=== PATIENT | male | born 1990 | race Hispanic/Latino ===

== ENCOUNTER 2019-02-18 16:04 | Emergency (ER) | payer OTHER, SELFPAY ==
[2019-02-18] MEDS ORDERED: TETANUS & DIPHTHERIA TOX,ADULT 0.5 ML VIAL ONE (16:21)
[2019-02-18] MEDS ORDERED: LIDOCAINE 1% MPF 5 ML VIAL ONE (16:21)
--- NOTE | 2019-02-18 17:02 | EDPHYS ---
Physician Documentation [facility] Name: Garfield Gibbs Age: 28 yrs Sex: Male : 1990 Arrival Date: 02/18/2019 Time: 16:07 Bed 14 Private MD: ED Physician Ace Damon HPI: 02/18 16:18 This 28 yrs old Male presents to ER via Ambulatory with complaints of kb Laceration To Scalp/Face. 16:18 The patient has a laceration related to: branch of palm tree fell and hit pt in the kb face causing laceration to upper lip and abrasions to forehead. No LOC occurred at a relative's home, outdoors, and there are no complicating factors. The injury was accidental. The laceration(s) is(are) located on the upper vermilion border and upper lip. Onset: The symptoms/episode began/occurred just prior to arrival. Associated signs and symptoms: The patient has no apparent associated signs or symptoms. The patient has not experienced similar symptoms in the past. The patient has not recently seen a physician. Historical: - Allergies: 16:09 No Known Allergies; la1 - PMHx: 16:09 None; la1 - Immunization history:: Adult Immunizations up to date. - Social history:: Smoking status: Patient/guardian denies using tobacco. - Ebola Screening: : No symptoms or risks identified at this time. ROS: 16:18 Constitutional: Negative for fever, chills, and weight loss, Eyes: Negative for injury, kb pain, redness, and discharge, ENT: Negative for injury, pain, and discharge, Neck: Negative for injury, pain, and swelling, Cardiovascular: Negative for chest pain, palpitations, and edema, Respiratory: Negative for shortness of breath, cough, wheezing, and pleuritic chest pain, Abdomen/GI: Negative for abdominal pain, nausea, vomiting, diarrhea, and constipation, Back: Negative for injury and pain, MS/Extremity: Negative for injury and deformity, Neuro: Negative for headache, weakness, numbness, tingling, and seizure. 16:18 Skin: Positive for abrasion(s), laceration(s). Exam: 16:18 Constitutional: This is a well developed, well nourished patient who is awake, alert, kb and in no acute distress. ENT: Nares patent. No nasal discharge, no septal abnormalities noted. Tympanic membranes are normal and external auditory canals are clear. Oropharynx with no redness, swelling, or masses, exudates, or evidence of obstruction, uvula midline. Mucous membranes moist. Neck: Trachea midline, no thyromegaly or masses palpated, and no cervical lymphadenopathy. Supple, full range of motion without nuchal rigidity, or vertebral point tenderness. No Meningismus. Chest/axilla: Normal chest wall appearance and motion. Nontender with no deformity. No lesions are appreciated. Cardiovascular: Regular rate and rhythm with a normal S1 and S2. No gallops, murmurs, or rubs. Normal PMI, no JVD. No pulse deficits. Respiratory: Lungs have equal breath sounds bilaterally, clear to auscultation and percussion. No rales, rhonchi or wheezes noted. No increased work of breathing, no retractions or nasal flaring. Abdomen/GI: Soft, non-tender, with normal bowel sounds. No distension or tympany. No guarding or rebound. No evidence of tenderness throughout. Back: No spinal tenderness. No costovertebral tenderness. Full range of motion. MS/ Extremity: Pulses equal, no cyanosis. Neurovascular intact. Full, normal range of motion. Neuro: Awake and alert, GCS 15, oriented to person, place, time, and situation. Cranial nerves II-XII grossly intact. Motor strength 5/5 in all extremities. Sensory grossly intact. Cerebellar exam normal. Normal gait. 16:18 Head/face: Noted is no obvious of injury or deformity except abrasion(s), that are mild, of the forehead, a laceration(s), that is deep, 2 cm(s), of the upper lip and upper vermilion border. Vital Signs: 16:09 BP 158 / 100; Pulse 104; Resp 16; Temp 98.6; Pulse Ox 100% on R/A; Weight 95.25 kg; la1 17:16 BP 147 / 99; Pulse 97; Resp 16; Temp 98.6; Pulse Ox 98% ; bp Laceration: 17:00 Wound Repair of 2cm ( 0.8in ) subcutaneous laceration to upper lip and upper vermilion kb border. Linear shaped.. Distal neuro/vascular/tendon intact. Anesthesia: Wound infiltrated with 3 mls of 1% lidocaine. Wound prep: Moderate cleansing, Wound irrigation. Skin closed with 5-0 fast absorbing gut using interrupted sutures and sterile technique. Patient tolerated well. MDM: 16:11 Patient medically screened. kb 16:20 Data reviewed: vital signs, nurses notes. Data interpreted: Pulse oximetry: on room air kb is 100 %. Interpretation: normal. Counseling: I had a detailed discussion with the patient and/or guardian regarding: the historical points, exam findings, and any diagnostic results supporting the discharge/admit diagnosis, the need for outpatient follow up, a family practitioner, to return to the emergency department if symptoms worsen or persist or if there are any questions or concerns that arise at home. 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 Exp: bp 09/24/2020. Lot #: [id number]. } Route: IM; Site: right deltoid; 17:17 Follow up: Response: No adverse reaction bp 16:42 Drug: Lidocaine (1 %) 1 vials Volume: 5 ml; Route: Infiltration; bp Disposition: 02/19 05:51 Co-signature as Attending Physician, Ace Damon MD I agree with the assessment and fatoumata plan of care. Disposition: 02/18/19 17:01 Discharged to Home. Impression: Laceration without foreign body of lip, Superficial injury of head. - Condition is Stable. - Discharge Instructions: Mouth Laceration, [id number], Head Injury, Adult, [id number]. - Medication Reconciliation Form, Thank You Letter, Antibiotic Education, Prescription Opioid Use form. - Follow up: Emergency Department; When: As needed; Reason: Worsening of condition. Follow up: Private Physician; When: 2 - 3 days; Reason: Recheck today's complaints, Continuance of care, Re-evaluation by your physician. Signatures: Manuela Kennedy, COMBINATION WORKER-C EDWINA-Ace Patel MD MD cha Attema, Lee RN RN la1 Guerrero Mancini RN RN bp Corrections: (The following items were deleted from the chart) 02/18 17:21 17:01 02/18/2019 17:01 Discharged to Home. Impression: Laceration without foreign body bp of lip; Superficial injury of head. Condition is Stable. Discharge Instructions: Mouth Laceration, [id number], Head Injury, Adult, [id number]. Forms are Medication Reconciliation Form, Thank You Letter, Antibiotic Education, Prescription Opioid Use. Follow up: Emergency Department; When: As needed; Reason: Worsening of condition. Follow up: Private Physician; When: 2 - 3 days; Reason: Recheck today's complaints, Continuance of care, Re-evaluation by your physician. kb
--- NOTE | 2019-02-18 17:02 | ER ---
Nurse's Notes [facility] Name: Garfield Gibbs Age: 28 yrs Sex: Male : 1990 Arrival Date: 02/18/2019 Time: 16:07 Bed 14 Private MD: Diagnosis: Laceration without foreign body of lip;Superficial injury of head Presentation: 02/18 16:08 Presenting complaint: Patient states: a palm tree hit me in the face, laceration to la1 upper lip. Transition of care: patient was not received from another setting of care. Complicating Factors: There are no complicating factors for this patient. Onset of symptoms was February 18, 2019. Risk Assessment: Do you want to hurt yourself or someone else? Patient reports no desire to harm self or others. Initial Sepsis Screen: Does the patient meet any 2 criteria? No. Patient's initial sepsis screen is negative. Does the patient have a suspected source of infection? No. Patient's initial sepsis screen is negative. Care prior to arrival: None. 16:08 Method Of Arrival: Ambulatory la1 16:08 Acuity: JH 4 la1 Triage Assessment: 16:08 General: Appears in no apparent distress. comfortable, Behavior is calm, cooperative, bp appropriate for age. Pain: Complains of pain in face. EENT: No deficits noted. Neuro: No deficits noted. Cardiovascular: No deficits noted. Respiratory: No deficits noted. GI: No signs and/or symptoms were reported involving the gastrointestinal system. : No signs and/or symptoms were reported regarding the genitourinary system. Derm: No deficits noted. Musculoskeletal: No deficits noted. Injury Description: Laceration sustained to face. Historical: - Allergies: 16:09 No Known Allergies; la1 - PMHx: 16:09 None; la1 - Immunization history:: Adult Immunizations up to date. - Social history:: Smoking status: Patient/guardian denies using tobacco. - Ebola Screening: : No symptoms or risks identified at this time. Screenin:44 Abuse screen: Denies threats or abuse. Denies injuries from another. Nutritional bp screening: No deficits noted. Tuberculosis screening: No symptoms or risk factors identified. Fall Risk None identified. Assessment: 16:08 General: SEE TRIAGE NOTE. Injury Description: Laceration sustained to mouth is 0.5 to bp 2.5 cm long, not bleeding. 17:14 Reassessment: PT D/C HOME AMBULATORY WITH FAMILY, DX WITH LACERATION. bp Vital Signs: 16:09 BP 158 / 100; Pulse 104; Resp 16; Temp 98.6; Pulse Ox 100% on R/A; Weight 95.25 kg; la1 17:16 BP 147 / 99; Pulse 97; Resp 16; Temp 98.6; Pulse Ox 98% ; bp ED Course: 16:07 Patient arrived in ED. mr 16:08 Triage completed. la1 16:09 Manuela Kennedy [facility]-C [facility]. kb 16:09 Ace Damon MD is Attending Physician. kb 16:09 Arm band placed on left wrist. la1 16:13 Guerrero Mancini, RN is Primary Nurse. bp 16:30 Assist provider with laceration repair on upper vermilion border that was 2.5 cm. or bp less using sutures. Set up tray. Performed by Manuela CAPELLAN Dressed with Neosporin, Patient tolerated well. 16:44 Patient has correct armband on for positive identification. Bed in low position. Call bp light in reach. Side rails up X2. Adult w/ patient. 17:14 No provider procedures requiring assistance completed. Patient did not have IV access bp during this emergency room visit. 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 Exp: bp 09/24/2020. Lot #: [id number]. } Route: IM; Site: right deltoid; 17:17 Follow up: Response: No adverse reaction bp 16:42 Drug: Lidocaine (1 %) 1 vials Volume: 5 ml; Route: Infiltration; bp Outcome: 17:01 Discharge ordered by . kb 17:20 Discharged to home ambulatory, with family. bp 17:20 Condition: stable 17:20 Discharge instructions given to patient, Instructed on discharge instructions, follow up and referral plans. wound care, Demonstrated understanding of instructions, follow-up care, wound care. 17:21 Patient left the ED. bp Signatures: Manuela Kennedy FNP-C FNP-Freddie Willow Malone, G[place], RN RN la1 Guerrero Mancini, RN RN bp
[2019-02-18 18:02] VITALS: TEMP 98.6
[2019-02-18 18:04] VITALS: BP 147/99; O2SAT 98
== END 2019-02-18 17:21 | disposition home or self-care (01) ==
LOC: ER 16:04
PROC: 0CQ0XZZ Repair Upper Lip, External Approach (ICD-10-PCS; principal; 2019-02-18)
DX: S01.511A Laceration without foreign body of lip, initial encounter (principal); W22.8XXA Striking against or struck by other objects, initial encounter; Y93.89 Activity, other specified; Y92.9 Unspecified place or not applicable
CPT/HCPCS: 90471; 90714; 99283